=== PATIENT | female | born 1960 | race Caucasian/White ===

== ENCOUNTER 2016-08-10 16:41 | Outpatient (CLI) | payer OTHER ==
--- NOTE | 2016-08-10 17:04 | DIAGNOSTIC IMAGING REPORT ---
PROCEDURE: XR CHEST 2 VIEW INDICATION: COUGH AND WHEEZING TECHNIQUE: PA and lateral views. COMPARISON: None. FINDINGS: Lungs are clear. Heart and mediastinum are normal. Thorax is normal. IMPRESSION: 1. Negative chest.
== END 2016-08-10 23:00 ==
LOC: XR SRH 16:41
DX: R06.02 Shortness of breath (principal); R05 Cough